=== PATIENT | female | born 1995 | race Two or more races ===

== ENCOUNTER 2021-11-18 13:47 | Emergency (ER) | payer OTHER ==
[~2021-11-18] VITALS: Ht 162.6 cm; Wt 56.7 kg
== END 2021-11-18 20:36 | disposition home or self-care (01) ==
LOC: ER 13:47
DX: J40 Bronchitis, not specified as acute or chronic (principal); B34.9 Viral infection, unspecified; Z88.0 Allergy status to penicillin